=== PATIENT | female | born 1975 | race Caucasian/White ===

== ENCOUNTER 2021-07-11 15:47 | Emergency (ER) | payer OTHER ==
[2021-07-11 16:56] LABS: HEMOGLOBIN 16.5 gm/dl (12.3-15.3); RED BLOOD COUNT 5.2 M/UL (4.00-5.10); WHITE BLOOD COUNT 9.7 K/UL (4.5-11.0)
[2021-07-11 17:16] LABS: BUN/CREATININE RATIO 22 (0-10)
[2021-07-11] MEDS ORDERED: PYRIDIUM200 MG PO (18:47)
[2021-07-11] MEDS ORDERED: OMNICEF 300 MG300 MG PO (18:47)
[2021-07-11] MEDS ORDERED: ZOFRAN4 MG PO (18:47)
== END 2021-07-11 18:45 | disposition home or self-care (01) ==
LOC: ER1 15:47
PROVIDERS: Physician Assistant Medical
DX: N39.0 Urinary tract infection, site not specified (principal)
CPT/HCPCS: 80053; 81001; 85025; 87086; 99284

== ENCOUNTER 2021-09-07 23:43 | Emergency (ER) | payer OTHER ==
[~2021-09-07 23:43] MED LIST: OMNICEF 300 MG300 MG PO; PYRIDIUM200 MG PO; ZOFRAN4 MG PO
[2021-09-08] MEDS ORDERED: ZOFRAN ODT 4 MG4 MG PO (02:38)
[2021-09-09] MEDS ORDERED: PROVENTIL HFA6.7 GM INH (22:47)
== END 2021-09-08 02:50 | disposition home or self-care (01) ==
LOC: ER1 23:43
DX: G43.909 Migraine, unspecified, not intractable, without status migrainosus (principal); F17.200 Nicotine dependence, unspecified, uncomplicated; Z20.822 Contact with and (suspected) exposure to COVID-19; Z88.5 Allergy status to narcotic agent
CPT/HCPCS: 96374; 96375; 99284; J1885; J2405; U0002

== ENCOUNTER 2021-09-09 15:48 | Emergency (ER) | payer OTHER ==
[~2021-09-09 15:48] MED LIST changes: +ZOFRAN ODT 4 MG4 MG PO
[2021-09-09 16:31] LABS: HEMOGLOBIN 15.8 gm/dl (12.3-15.3); RED BLOOD COUNT 5.1 M/UL (4.00-5.10); WHITE BLOOD COUNT 8.2 K/UL (4.5-11.0)
[2021-09-09 16:50] LABS: BUN/CREATININE RATIO 29 (0-10)
[2021-09-09 20:43] LABS: BORDETELLA PARAPERTUSSIS Not Detected (Not Detectd); BORDETELLA PERTUSSIS Not Detected (Not Detectd); CHLAMYDIA PNEUMONIAE Not Detected (Not Detectd); CORONAVIRUS HKU1 Not Detected (Not Detectd); CORONAVIRUS NL63 Not Detected (Not Detectd); CORONAVIRUS OC43 Not Detected (Not Detectd); CORONOAVIRUS 229E Not Detected (Not Detectd); HUMAN METAPNEUMOVIRUS Not Detected (Not Detectd); HUMAN RHINOVIRUS/ENTEROVIRUS Not Detected (Not Detectd); INFLUENZA A Not Detected (Not Detectd); INFLUENZA B Not Detected (Not Detectd); MYCOPLASMA PNEUMONIAE Not Detected (Not Detectd); PARAINFLUENZA VIRUS 1 Not Detected (Not Detectd); PARAINFLUENZA VIRUS 2 Not Detected (Not Detectd); PARAINFLUENZA VIRUS 3 Not Detected (Not Detectd); PARAINFLUENZA VIRUS 4 Not Detected (Not Detectd); RESPIRATORY SYNCYTIAL VIRUS Not Detected (Not Detectd)
[2021-09-09 21:39] LABS: SARS-CoV-2 NOT DETECTED (Not Detectd)
[2021-09-09] MEDS ORDERED: PROVENTIL HFA6.7 GM INH (22:47)
== END 2021-09-09 23:00 | disposition home or self-care (01) ==
LOC: ER1 15:48
PROVIDERS: Physician Assistant
DX: J06.9 Acute upper respiratory infection, unspecified (principal); R51.9 Headache, unspecified; I10 Essential (primary) hypertension; J45.909 Unspecified asthma, uncomplicated; Z88.5 Allergy status to narcotic agent; Z88.1 Allergy status to other antibiotic agents; Z20.822 Contact with and (suspected) exposure to COVID-19
CPT/HCPCS: 70450; 71045; 80053; 81001; 85025; 87633; 93005; 96374; 96375; 99284; J1200; J1885; J2765